=== PATIENT | male | born 1970 | race Caucasian/White ===

== ENCOUNTER 2018-10-17 20:28 | Emergency (ER) | payer MEDICAID ==
[~2018-10-17] VITALS: Ht 190.5 cm; Wt 81.6 kg
[2018-10-17 20:35] VITALS: BP 117/83
--- NOTE | 2018-10-17 20:41 | NUR ---
PT AMBULATED TO BED 3 WITH VSS.
--- NOTE | 2018-10-17 20:45 | NUR ---
PT C/O ABSCESS UNDER RT EYE. PT HAS BEEN HERE FOR SAME COMPLAINT AND HAD ABSCESS DRAINED. PT DENIES PAIN AT THIS TIME. PT HAS APPT WITH SPECIALIST ON 11/12 FOR EYE.
--- NOTE | 2018-10-17 22:32 | NUR ---
Dr. Kelsey evaluating patient at bedside.
[2018-10-17] MEDS ORDERED: LIDOCAINE 2% 1000 MG/50 ML VIAL INJ ONE (23:15)
[2018-10-17] MEDS ORDERED: CLINDAMYCIN 150 MG CAP PO ONE (23:20)
--- NOTE | 2018-10-17 23:20 | NUR ---
I&D Procedure done by Dr BURDICK. amt of bleeding noted. . DSD applied. Pt procedure.
[2018-10-17] MEDS ORDERED: LIDOCAINE MPF 1% 5mL VIAL ONE ×2 (23:23→23:24)
[2018-10-17] MEDS: IBUPROFEN 800 MG TAB PO ONE ×2 (23:25→23:26)
[2018-10-17 23:50] VITALS: BP 138/89
--- NOTE | 2018-10-17 23:50 | NUR ---
Patient discharged with v/s stable. Written and verbal after care instructions given and explained. Patient alert, oriented and verbalized understanding of instructions. Ambulatory with steady gait. All questions addressed prior to discharge. ID band removed. Patient advised to follow up with PMD. Rx of MOTRIN 800MG AND CLINDAMYCIN 300MG given. Patient educated on indication of medication including possible reaction and side effects. Opportunity to ask questions provided and answered.
== END 2018-10-17 23:50 | disposition home or self-care (01) ==
LOC: MED 20:28
DX: H04.301 Unspecified dacryocystitis of right lacrimal passage (principal); J45.909 Unspecified asthma, uncomplicated
CPT/HCPCS: 68420; 99284; J2001; 99283

== ENCOUNTER 2018-11-02 15:51 | Emergency (ER) | payer MEDICAID ==
[~2018-11-02] VITALS: Ht 190.5 cm; Wt 81.2 kg
[2018-11-02 16:19] VITALS: BP 121/74
--- NOTE | 2018-11-02 17:31 | NUR ---
pt. ambulated to ER bed 2
--- NOTE | 2018-11-02 17:35 | NUR ---
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 WAS SEEN MULTIPLE TIMES FOR THE SAME S/S ON 10/17/18, 10/04/18, AND 10/01/18. PER PT HE IS SCHEDULED TO BE SEEN AT [facility] ON 11/12/18 BUT CAME D/T TO WORSENING CONDITION. PT IS AAOX4, VSS AT THIS TIME, BED DOWN, BEDRAIL UP X 1, ER MD AWARE AND NOTIFIED OF PT STATUS. HX; DCARYOCYSTITIS RX; CLINDAMYCIN, MOTRIN
--- NOTE | 2018-11-02 19:14 | NUR ---
DR BRUCE PERFORMING BEDSIDE PROCEDURE AT THIS TIME.
[2018-11-02] MEDS ORDERED: LIDOCAINE MPF 1% 5mL VIAL ONE (19:17)
--- NOTE | 2018-11-02 19:20 | NUR ---
Secured PT's gauze over wound located under right eye using medical tape.
[2018-11-02 19:24] VITALS: BP 121/74
--- NOTE | 2018-11-02 19:24 | NUR ---
Patient discharged BY DR BRUCE with v/s stable. Written and verbal after care instructions given and explained. Patient alert, oriented and verbalized understanding of instructions. Ambulatory with steady gait. All questions addressed prior to discharge. ID band removed. Patient advised to follow up with PMD. Rx of NAPROSYN AND KEFLEX given. Patient educated on indication of medication including possible reaction and side effects. Opportunity to ask questions provided and answered. PT WAS PROVIDED SANDWICH AND APPLE JUICE IN ER, PT HAS WHEATHER APPROPRIATE CLOTHING.
[2018-11-02] MEDS ORDERED: LIDOCAINE 1% 500 MG/50 ML VIAL INJ SCH (19:25)
== END 2018-11-02 19:24 | disposition home or self-care (01) ==
LOC: MED 15:51
DX: H44.001 Unspecified purulent endophthalmitis, right eye (principal); J45.909 Unspecified asthma, uncomplicated; F17.200 Nicotine dependence, unspecified, uncomplicated
CPT/HCPCS: 10060; 99283; J2001

== ENCOUNTER 2023-01-27 13:47 | Emergency (ER) | payer MEDICAID ==
--- NOTE | 2023-01-27 16:00 | NUR ---
PT. CALLED IN LOBBY, NOT FOUND, CHECKED BATHROOMS, CHECKED OUTSIDE ER AND PT. NOT FOUND. NOTIFIED.
--- NOTE | 2023-01-27 16:15 | NUR ---
PT. CALLED IN LOBBY, NOT FOUND, CHECKED BATHROOMS, CHECKED OUTSIDE ER AND PT. NOT FOUND. NOTIFIED.
--- NOTE | 2023-01-27 17:00 | NUR ---
PT. CALLED IN LOBBY, NOT FOUND, CHECKED BATHROOMS, CHECKED OUTSIDE ER AND PT. NOT FOUND. NOTIFIED.
== END 2023-01-27 16:00 | disposition left against medical advice (07) ==
LOC: MED 13:47
DX: H57.10 Ocular pain, unspecified eye (principal); Z53.21 Procedure and treatment not carried out due to patient leaving prior to being seen by health care provider